=== PATIENT | female | born 1950 | race Caucasian/White ===

== ENCOUNTER → 2019-08-25 | Outpatient (CLI) | payer OTHER | LOC: RAD 10:51 | PROVIDERS: ATTEND Nurse Practitioner | DX: Z12.31 Encounter for screening mammogram for malignant neoplasm of breast (principal) ==

== ENCOUNTER → 2019-11-30 | Outpatient (CLI) | payer OTHER ==
[2019-11-30 10:57] LABS: URINE BILIRUBIN NEGATIVE (Negative); URINE BLOOD NEGATIVE (Negative); URINE CLARITY CLEAR; URINE COLOR YELLOW; URINE GLUCOSE-RANDOM* NEGATIVE (Negative); URINE KETONES NEGATIVE (Negative); URINE LEUKOCYTES-REFLEX NEGATIVE (Negative); URINE NITRITE-REFLEX NEGATIVE (Negative); URINE PROTEIN (DIPSTICK) NEGATIVE (Negative); URINE SPECIFIC GRAVITY <= 1.005 (1.005-1.035); URINE UROBILINOGEN 0.2 E.U./dl (0.2-1.0)
[2019-11-30 10:58] LABS: ABSOLUTE NEUTROPHILS 3.8 thou/uL (1.4-8.2); BASOPHILS 0.7 % (0.0-2.0); EOSINOPHILS 2.8 % (0.0-3.0); HEMATOCRIT 44.7 % (37.0-47.0); MCH 31.4 pg (26.0-34.0); MCHC 33.6 g/dL (28.0-37.0); MCV 93.5 fL (80.0-100.0); MONOCYTES 6.2 % (1.0-8.0); PLATELET COUNT 242 thou/uL (150-400); POLYS 65.3 % (36.0-66.0); RBC 4.78 mil/uL (4.20-5.00); RDW 13.8 % (10.5-14.5); WBC 5.8 thou/uL (4.0-11.0)
[2019-11-30 11:13] LABS: ALBUMIN 4.4 g/dL (3.4-5.0); ANION GAP 8 mmol/L (7-16); BUN 19 mg/dL (7-18); CALCIUM 9.6 mg/dL (8.5-10.1); CHLORIDE 101 mmol/L (98-107); CHOLESTEROL 298 mg/dL (<200); CO2 32 mmol/L (21-32); CREATININE 0.9 mg/dL (0.6-1.0); GLUCOSE 95 mg/dL (74-106); HDL CHOLESTEROL 101 mg/dL (>40); LDL CHOLESTEROL 179 mg/dL (<100); POTASSIUM 4.3 mmol/L (3.5-5.1); SGOT 19 U/L (15-37); SGPT 26 U/L (30-65); SODIUM 141 mmol/L (136-145); TOTAL BILIRUBIN 0.4 mg/dL (0.2-1.0); TOTAL PROTEIN 7.8 g/dL (6.4-8.2); TRIGLYCERIDE 92 mg/dL (<150); VLDL 18 mg/dL (<40)
== END ==
LOC: LAB 10:22
PROVIDERS: ATTEND Nurse Practitioner
DX: Z00.00 Encounter for general adult medical examination without abnormal findings (principal)

== ENCOUNTER → 2020-07-18 | Outpatient (CLI) | payer OTHER ==
[~2020-07-18] MED LIST: MULTI VITAMIN1 EACH PO; SYNTHROID125 MC1 PO; TUMS200 MG PO; ZYRTEC10 M5 PO
[2020-07-18 11:16] LABS: HEMATOCRIT 42.8 % (37.0-47.0); HEMOGLOBIN 14.6 gm/dL (12.0-15.0); MCH 31.8 pg (26.0-34.0); MCV 93.5 fL (80.0-100.0); RBC 4.57 mil/uL (4.20-5.00); RDW 14.3 % (10.5-14.5); WBC 5.9 thou/uL (4.0-11.0)
[2020-07-18 11:23] LABS: URINE BILIRUBIN NEGATIVE (Negative); URINE BLOOD NEGATIVE (Negative); URINE CLARITY CLEAR; URINE COLOR YELLOW; URINE GLUCOSE-RANDOM* NEGATIVE (Negative); URINE KETONES NEGATIVE (Negative); URINE LEUKOCYTES-REFLEX NEGATIVE (Negative); URINE NITRITE-REFLEX NEGATIVE (Negative); URINE PROTEIN (DIPSTICK) NEGATIVE (Negative); URINE SPECIFIC GRAVITY <= 1.005 (1.005-1.035); URINE UROBILINOGEN 0.2 E.U./dl (0.2-1.0)
[2020-07-18 11:25] LABS: CALCIUM 9.4 mg/dL (8.5-10.1); POTASSIUM 4.1 mmol/L (3.5-5.1)
[2020-07-18 11:30] LABS: INR 0.95; PROTIME 10.4 Seconds (10.5-12.1)
--- NOTE | 2020-07-18 13:45 | EKG ---
[address] [place] [employer] [address] ELECTROCARDIOGRAM REPORT Name: TANO GARCIA Room #: REG [facility]#: [id number] Admission: 07/18/20 Attend Phys: Austyn Major MD Discharge: Date of : 54 Report #: [id number] [facility] Test Date: 2020-07-18 Test Time: 11:09:19 Pat Name: TANO GARCIA Department: Room: Gender: F Wax Room Supervisor: LIZZETTE CORTEZ : 1950 Requested By: Austyn Major Order Number: [id number] MD: Gigi Worthington Measurements Intervals [place] Rate: 57 P: 34 [place]: 163 QRS: 4 QRSD: 86 T: 37 QT: 405 QTc: 395 Interpretive Statements Sinus rhythm Abnormal R-wave progression, early transition No previous ECG available for comparison Electronically Signed On 07-18-2020 13:44:57 CDT by Gigi Worthington [email or web address] <ELECTRONICALLY SIGNED> By: Gigi Worthington MD, [facility] 07/18/20 1344 1109 1109 Gigi Worthington MD, FACC /EPI
== END ==
LOC: PAC 10:32
PROVIDERS: ATTEND Orthopaedic Surgery
DX: Z01.818 Encounter for other preprocedural examination (principal); M17.12 Unilateral primary osteoarthritis, left knee

== ENCOUNTER 2020-07-24 12:09 | Observation (INO) | payer OTHER ==
[~2020-07-24] VITALS: Ht 170.2 cm; Wt 89.8 kg
[2020-07-24 13:12] VITALS: BP 155/73
[2020-07-24 18:11] VITALS: BP 151/71
[2020-07-24 20:15] VITALS: BP 161/70
--- NOTE | 2020-07-24 20:28 | NUR ---
Admitted from OR this PM; transferred to room safely; s/p L knee. On room air. Vital signs stable. On regular diet- ate only approx 10%, stating she did not have any appetite; snack offered; no nausea, no vomiting and no abdominal pain noted. On MS, not on telemetry; no complains and signs of chest pain, crushing sensation and heaviness. Assisted in ADLs. With IV a L FA- D5NS at 100cc/hr started as ordered. Complained of pain , due PRN pain meds given as prescribed. HECTOR dressing in place; C/D/I; JAI hose, SCDs and polar pack in place. NVS intact, able to wiggle toes and feel tactile stimulation. A/w PT assessment. Admission education done, forms signed as well. Admission to be continued by night RN (history, assessment and med rec), checklist attached to chart. Pt's present at bedside; update given. Falls bundle in place. To continue monitoring patient.
[2020-07-25 03:48] VITALS: BP 144/75
--- NOTE | 2020-07-25 04:12 | NUR ---
ASSESSMENT COMPLETED. PT IS ALERT AND PLEASANT.LEFT KNEE WITH HECTOR DRSG WELL POLAR CORINA. GOOD CSM TO TOES. NOT MUCH PAIN, USING BED PARKER, GOOD U/O. AFEBRILE.ROOM AIR. CONTINUES ON IVF.
--- NOTE | 2020-07-25 08:42 | NUR ---
ASSESSMENT: CM REVIEWED CHART AND SPOKE WITH PATIENT AT THE BEDSIDE. PT IS ALERT AND ORIENTED X4. PT IS S/P LEFT TOTAL KNEE ARTHROPLASTY. PT REPORTS THAT SHE LIVES IN A HOUSE WITH HER . PT HAS TWO STEPS TO ENTER THE HOME WITH HANDRAIL AND NO STEPS ONCE INSIDE THAT SHE HAS TO USE. PT REPORTS HAVING A CANE, WALKER, GRAB BAR, AND SHOWER CHAIR AT HOME TO ASSIST HER IF NEEDED. PT STATES SHE HAS OUTPATIENT THERAPY ARRANGED TO BEGIN HERE AT [facility] OUTPATIENT THERAPY ON FRIDAY. CM DISCUSSED ROLE. PT DOES NOT ANTICIPATE HAVING ANY NEEDS FROM CASE MANAGEMENT. CM WILL CONTINUE TO FOLLOW TO ASSIST NEEDED. PT WILL WORK WITH THERAPY TODAY.
[2020-07-25 09:01] VITALS: BP 129/73
--- NOTE | 2020-07-25 10:35 | NUR ---
Assumed care of pt at 0700. Pt a&ox4. Pain controlled with prn pain meds. Pt nausous at first with physical therapy. Anti-emetic administered. IVF infusing. Dressing c/d/i. SCDs and JAI hose in place. Polar care in place. Call light within reach. Fall precautions in place. Will continue to monitor.
[2020-07-25 16:56] VITALS: BP 138/68
[2020-07-25 20:00] VITALS: BP 140/56
[2020-07-26 04:33] VITALS: BP 145/63
--- NOTE | 2020-07-26 05:04 | NUR ---
ASSUMED CARE OF PT AT SHIFT CHANGE. PT IS AOX4 AND LETS NEEDS BE KNOWN. FALL PRECAUTION IN PLACE. POLAR CARE IN PLACE. PT REPORTED SOME LE PAIN AND WAS TREATED WITH PRN PAIN MEDS. PT DENIED NAUSEA AND SOA. PT WAS ABLE TO AMBULATE TO BSC WITH MINIMAL ASSISTANCE. ASSESSMENT CHARTED. PT WAS ABLE TO SLEEP PART OF THE SHIFT. VSS AND NO S/S OF ACUTE DISTRESS. WILL CONTINUE TO MONITOR.
[2020-07-26 07:52] VITALS: BP 149/67
--- NOTE | 2020-07-26 10:32 | NUR ---
ASSUMED PT CARE AROUND 0700. PT ALERT X ORIENTED X4. ON ROOM AIR. STAND BY ASSIST. IV LEFT FA/SALINE LOCKED. PAIN CONTROLLED BY PAIN MEDICINE, PATIENT'S AT BEDSIDE. PT WORKED WITH PHYSICAL THERAPY. PICCO DRESSING, POLAR CARE/TEDS/SCDS IN PLACE. REGULAR DIET. USES BEDSIDE COMMODE WITH WALKER. CALL LIGHT IN REACH. WILL CALL APPROPRIATELY. WILL CONTINUE TO MONITOR.
--- NOTE | 2020-07-26 11:33 | NUR ---
on-going assessment: CM REVIEWED CHART. PT CONTINUED TO WORK WITH THERAPY AND WAS CLEARED TO DISCHARGE HOME. PT REPORTS SHE RESCHEDULED HER OUTPATIENT APPT HERE AT [facility] FOR TOMORROW. PT REPORTS NO FURTHER NEEDS FROM CM.
[2020-07-26 11:34] VITALS: BP 149/67
--- NOTE | 2020-07-26 14:47 | O ---
[facility] [place] [address] [place] [address] OPERATIVE REPORT Name: TANO GARCIA Room #: 437-P [facility] Adriana Black#: [id number] Admission: 07/24/20 Attend Phys: Austyn Major MD Discharge: 07/26/20 Date of : 54 Report #: [id number] THIS REPORT FOR: cc: Jemma Mares Beth RNP Abraham, Scott M. MD ~ DOC #: [id number] Austyn Major MD DATE OF SERVICE: 07/24/2020 PREOPERATIVE DIAGNOSIS: Left knee valgus osteoarthritis. POSTOPERATIVE DIAGNOSIS: Left knee valgus osteoarthritis. PROCEDURE: Left total knee arthroplasty using Navio robotic assistance. SURGEON: Austyn Major MD. SLITTER PROCESSED FILM: None. ANESTHESIA: LMA with adductor canal block. IMPLANTS: A Lea and Nephew size 7 Journey II BCS cobalt chrome femur, size 5 tibia, size 32 patella and a 13 constrained polyethylene. Tourniquet time was 53 minutes. ESTIMATED BLOOD LOSS: 25 mL. COMPLICATIONS: None. SPECIMENS: None. CONDITION UPON LEAVING OR: Stable. INDICATIONS FOR PROCEDURE: The patient is a 70-year-old female with severe left knee valgus osteoarthritis. She had failed conservative measures for this and after discussion with her, she elected for left total knee arthroplasty. DESCRIPTION OF PROCEDURE: Risks, benefits, alternatives, complications were discussed in detail with the patient including but not limited to risk of anesthesia, risk of damage to nerves, arteries, blood vessels, risk for infection, bleeding, risk for continued knee pain, need for reoperation. DESCRIPTION OF PROCEDURE: Informed consent was obtained from the patient. Left knee was appropriately marked in the preoperative holding area. IV Ancef was given for preoperative antibiotics. She was brought to the operating room and [address] [address] OPERATIVE REPORT Name: TANO GARCIA Room #: 437-P [facility] Adriana Black#: [id number] Admission: 07/24/20 Attend Phys: Austyn Major MD Discharge: 07/26/20 Date of : 54 Report #: [id number] placed in the supine position on the operating table. LMA anesthesia was induced without complication. Tourniquet was placed on the left thigh. Left lower extremity was prepped and draped in normal sterile fashion. Timeout was performed properly identifying the patient and procedure as well as the instrumentation and implants. All in the operating room in agreement. Left lower extremity was exsanguinated, tourniquet was inflated. Tourniquet time was 53 minutes. Standard midline approach to the knee was made with 10 blade through the skin. Dissection was taken down sharply to the fascia and deep flaps were developed medially and laterally. Fresh 10 blade was used to make a medial parapatellar arthrotomy and the knee was inspected. There was severe lateral compartment osteoarthritis with moderate medial and patellofemoral compartment osteoarthritis. ACL and PCL were removed sharply. Reference pins were placed in the femur and the tibia. The knee was digitally mapped using the Basha robotic system. Intraoperative plan was made. We sized the size 7 femur, a size 5 tibia and a 10 spacer. After acceptance of the intraoperative plan, the distal femoral cut was made with Navio bur. Distal femoral cutting block was pinned in place and chamfer cuts were made. Attention was turned to the tibia. Remainder of the menisci removed with Bovie cautery. Tibial resection guide was pinned in place and tibial resection was made. Flexion and extension gaps were checked and found to have good balance laterally in flexion and extension with slight laxity medially. It was felt we can make up for this with a constrained implant. Tibia sized, found to be a size 5. A size 5 tibial trial was placed, pinned and punched. Size 7 femoral trial was placed and the box cut was made. This was then trialed with a size 10 up to a size 13 polyethylene. Size 13 polyethylene demonstrated the best stability laterally throughout range of motion of the knee. Again, medially there was some laxity and it was felt we could use a constrained implant, 9 mm of bone was resected from the posterior surface of the patella and a size 32 patellar trial button was placed, knee was taken through range of motion, found to be stable, found to have good patellar tracking. Trial components were removed. Bone ends were thoroughly irrigated with normal saline. A final size 5, tibia size 7 Journey II BCS cobalt chrome femur, and a size 32 patella were cemented in place using standard cementation techniques. While the cement cured, a periarticular injection consisting of morphine, ropivacaine, epinephrine, Toradol was placed around the knee joint capsule. After the cement cured, tourniquet was deflated. Hemostasis was obtained with Bovie cautery. Final size 13 constrained polyethylene was placed. A gram of vancomycin was placed deep in the joint. Fascia was closed with 0 Vicryl. Skin was closed with 2-0 Vicryl, 3-0 Monocryl. Dermabond and a HECTOR dressing was applied. The patient tolerated this procedure well and went to recovery room under care of Anesthesia postoperatively. Austyn Major MD [facility] [address] [address] OPERATIVE REPORT Name: TANO GARCIA Room #: 437-P [facility] Adriana Black#: [id number] Admission: 07/24/20 Attend Phys: Austyn Major MD Discharge: 07/26/20 Date of : 54 Report #: [id number] <ELECTRONICALLY SIGNED> By: Austyn Major MD 07/26/20 1447 1550 1703 Austyn Major MD /nt
== END 2020-07-26 12:30 | disposition home or self-care (01) ==
LOC: TBA 12:09 → OR 12:09 → TBA 12:11 → OR 13:09 → TBA 15:46 → 4S 17:18
PROVIDERS: ADMIT Orthopaedic Surgery; ATTEND Orthopaedic Surgery
DX: M17.12 Unilateral primary osteoarthritis, left knee (principal)
CPT/HCPCS: 50010; 50101; 50415; 50954; 51130; 51225; 51320; 52001; 52282; 53000; 53078; 56527; 56528; 57095; 57103; 57110; 57127; 57180; 58239; 62110; 62900; 64043; 65060; 70005

== ENCOUNTER → 2020-11-07 | Outpatient (CLI) | payer OTHER ==
[~2020-11-07] VITALS: Ht 170.2 cm; Wt 90.7 kg
[~2020-11-07] MED LIST changes: +IBUPROFEN 600600 M1 PO
--- NOTE | ~2020-11-07 | HPC ---
[facility] [place] [address] PAIN MANAGEMENT CONSULTATION Name: TANO GARCIA Room #: REG [facility].#: [id number] Admission: 11/07/20 Attend Phys: Marques Tang DO Discharge: Date of : 54 Report #: [id number] THIS REPORT FOR: cc: Jemma Mares Beth RNP Johnson, James E. DO ~ DATE OF SERVICE: 11/07/2020 REFERRING NURSE PRACTITIONER: Jemma Mares NP CHIEF COMPLAINT: Left low back pain, left lower extremity pain with paresthesias. HISTORY OF PRESENT ILLNESS: As you know, the patient is a very pleasant 70-year-old female reporting acute onset of low back pain, left buttock and left lower extremity pain with radiation to the great toe on the left side. The patient states pain began prior to her left total knee arthroplasty and progressed even after that surgery. She denies any specific injury or trauma. The patient states that physical therapy has been helpful, but has not improved symptoms to a great degree. She has undergone total knee arthroplasty on 07/24/2020 and since then, her pain has progressed and worsened. She was trialled on a Medrol Dosepak, which improved the symptoms and has been utilizing ibuprofen 600 mg 4 times a day with good improvement in symptoms. Prior to her total knee arthroplasty, she was provided with a diagnosis of lumbar radiculopathy by her orthopedic surgeon. She did not treat those conditions at that time. Due to lack of improvement with conservative treatment including physical therapy and hiht-yyl-hroudzl medications as well as prescription of ibuprofen, the patient was referred on to our clinic to discuss treatment options. The patient indicates her pain is a constant, continuous, and intermittently exacerbated. She describes the pain more of a throbbing and numbness and tingling radiating from the buttock area to the left great toe. She places current pain score at 3/10, daily average of 4/10, worst pain has been is 8/10. The patient states pain is exacerbated with lying in bed at night. Pain is improved with stretching, ibuprofen, and the seated position. She has been referred to our service to discuss treatment options for left buttock and left leg pain. PAST MEDICAL HISTORY: 1. Thyroid disease. 2. Visual impairment. 3. Osteoarthritis. PAST SURGICAL HISTORY: 1. Left total knee arthroplasty. 2. [place] [address] PAIN MANAGEMENT CONSULTATION Name: TANO GARCIA Room #: REG CLI [facility]#: [id number] Admission: 11/07/20 Attend Phys: Marques Tang DO Discharge: Date of : 54 Report #: [id number] SOCIAL HISTORY: The patient denies IV or illicit drug use. Denies any chronic alcohol use. She is not a smoker. She is retired, retired years ago. She is not receiving workmen's compensation nor is she trying to obtain disability benefits. She is not in litigation in regards to pain. She is unaccompanied at today's visit. REVIEW OF SYSTEMS: Positive for wearing corrective eyewear, chronic sinus problems with rhinitis, low back pain, left lower extremity pain with paresthesias, numbness and tingling, thyroid disease, heat and cold intolerance. All other review of systems is negative per 12-point review of systems other than those listed in history of present illness. Pain impact score 34/70, moderate interference of daily activities secondary to pain. ALLERGIES: CODEINE. CURRENT MEDICATIONS: Levothyroxine 125 mcg per day, multivitamin 1 tab per day, cetirizine 10 mg per day, calcium carbonate 200 mg once a day, ibuprofen 600 mg 3 times a day. IMAGING: No imaging available. PHYSICAL EXAMINATION: VITAL SIGNS: Blood pressure 137/63, pulse 70, respiratory rate 16 and unlabored. The patient is 98% on room air. Height 5 feet 7 inches tall, weight 200 pounds, BMI calculated 31.3. GENERAL: Well-developed, well-nourished, well-hydrated 70-year-old female appearing stated age, pain is rated today up to 3/10. HEENT: Normocephalic, atraumatic. Pupils equal, round and responsive to light. Extraocular muscles are intact. Speech is fluent. The patient deemed an excellent historian. She is wearing a mask in compliance with COVID-19 regulations. LUNGS: Clear. No wheeze, rhonchi or rales. CARDIOVASCULAR: Regular. No appreciable gallop, no rub. ABDOMEN: Soft. EXTREMITIES: Show no clubbing, no cyanosis and no edema. MUSCULOSKELETAL: Lower extremity strength equal and symmetrical 5/5 intact to light touch from L1 through S2 dermatomes. Seated straight leg raising negative. Supine straight leg raising positive on the left. Leisa's test is negative. Modified Gaenslen's positive for axial low back pain. Ankle clonus negative. Babinski is negative. Thigh thrust maneuver is equivocal, more positive on right than left. Gigi's test is positive right, negative left. Sacral compression causes intensification of pain in the upper buttock area, unrelated to the left buttock and posterolateral thigh pain. [facility] [address] [place] [address] PAIN MANAGEMENT CONSULTATION Name: TANO GARCIA Room #: REG [facility]#: [id number] Admission: 11/07/20 Attend Phys: Marques Tnag DO Discharge: Date of : 54 Report #: [id number] ASSESSMENT: 1. Symptomatic lumbar radiculopathy. 2. Lumbosacral spondylosis with radiculopathy. 3. Bilateral sacroiliac joint pain. 4. Osteoarthritis. 5. Chronic intractable pain. PLAN: 1. Based on today's physical exam, the history the patient has provided, the description the patient uses in regards to pain as well as the descriptors that patient utilizes, likely source of the patient's pain is a lumbar radiculopathy. The patient indicates she is able to sit without difficulty and ambulate without difficulty, which rules out SI joint as a source of her symptoms. She is having no changes in weightbearing, which rules out possible hip pathology. The distribution of symptoms is classic for a dermatomal distribution with radiation to the left great toe. We discussed with the patient, the distribution of symptoms would correlate to an L5 dermatomal distribution, indicating that there is either changes at the L4-L5 level typically in the central canal or lateral recess causing impingement upon the L5 nerve root or disk bulge/herniation at the L5-S1 level with impingement on the L5 nerve root or neural foraminal stenosis affecting the L5 nerve root. After discussion of the physical findings and how they correlate to an L5 dermatomal distribution, we then discussed treatment options to address ongoing pain. The following was discussed with the patient today. We discussed physical therapy, stretching exercises and core strengthening as a treatment approach. We discussed medication management utilizing neuropathic medications in conjunction with her current nonsteroidal anti-inflammatory. These would include amitriptyline, nortriptyline, Cymbalta, Lyrica or gabapentin. We discussed lumbar epidural injection under fluoroscopic guidance to directly affect the L5 nerve root. We also discussed surgical procedure such as a spinal cord stimulator or surgical decompression. After reviewing risks and benefits of all proposed treatment options, the patient chose to move forward with a lumbar epidural injection under fluoroscopic guidance. 2. The patient was advised due to third constitution party payer restrictions, authorization would have to be obtained before the patient could undergo a lumbar epidural injection. We will begin that process immediately. I am hopeful we can have this patient's approval quickly and have the patient undergo the lumbar epidural injection requested to address her lumbar radicular symptoms involving the left L5 nerve root. 3. No medication changes made at today's visit. We recommend the patient continue the ibuprofen 600 mg 4 times a day as needed as long as she is receiving benefit, no dyspepsia, worsening of blood pressure, or lower extremity edema. She will continue this medication until our next visit. 4. We will have the patient return once we [place] [address] PAIN MANAGEMENT CONSULTATION Name: TANO GARCIA Room #: REG [facility] [id number] Admission: 11/07/20 Attend Phys: Marques Tang DO Discharge: Date of : 54 Report #: [id number] requested by the third constitution party payer to undergo the lumbar epidural injection that we proposed. I am hopeful that we can have that authorization quickly, the patient can return to undergo the procedure. We will keep you apprised of the timing of which she can undergo the injection and any response she may benefit. 5. We wish to thank nurse practitioner, Jemma Mares for the opportunity to see this patient in consultation. We will keep you apprised of her response to treatment as we address lumbar radiculopathy. Again, we wish to thank you for the opportunity to see the patient in consultation. By: [id number] Marques Tang DO /nt
[2020-11-07 12:40] VITALS: BP 137/63
--- NOTE | 2020-11-07 12:53 | NUR ---
Pain Clinic Assessment: 1. History of Osteoarthritis: RIGHT HIP RIGHT KNEE History of Rheumatoid Arthritis: 2. Height: 5 ft. 7 in. 170.2 cm. Weight: 200.0 lb. oz. 90.720 kg. Patient's BMI: 31.3 3. Vital Signs: BP: 137/63 Pulse: 70 Resp: 16 Temp: 02 Sat: 98 ECG Mon: 4. Pain Intensity: 3 5. Fall Risk: Dizziness: N Needs help standing or walking: N Fallen in the last 3 months: N Fall risk comments: 6. Patient on Blood Thinner: None 7. History of Hypertension: N 8. Opioid Therapy greater than 6 weeks: Opiate Contract Signed: 9. Risk Assessment Tool Provided: 0 LOW RISK 10. Functional Assessment Tool: 11. Recreational Drug Use: Never Drug Type: Tobacco Use: Never Smoker Tobacco Type: Amount or Packs/day: How Many Years: Alcohol Use: Yes Frequency: Weekly Quant: 1
== END ==
LOC: PAIN 10:32
PROVIDERS: ATTEND Anesthesiology Pain Medicine
DX: G89.4 Chronic pain syndrome (principal); M47.27 Other spondylosis with radiculopathy, lumbosacral region; M19.90 Unspecified osteoarthritis, unspecified site

== ENCOUNTER → 2020-11-14 | Outpatient (CLI) | payer OTHER ==
[~2020-11-14] VITALS: Ht 170.2 cm; Wt 91.8 kg
[2020-11-14 10:02] VITALS: BP 135/85
--- NOTE | 2020-11-14 10:14 | NUR ---
Pain Clinic Assessment: 1. History of Osteoarthritis: RIGHT HIP RIGHT KNEE History of Rheumatoid Arthritis: 2. Height: 5 ft. 7 in. 170.2 cm. Weight: 202.4 lb. oz. 91.808 kg. Patient's BMI: 31.7 3. Vital Signs: BP: 135/85 Pulse: 67 Resp: 18 Temp: 02 Sat: 98 ECG Mon: 4. Pain Intensity: 3 5. Fall Risk: Dizziness: N Needs help standing or walking: N Fallen in the last 3 months: N Fall risk comments: 6. Patient on Blood Thinner: None 7. History of Hypertension: N 8. Opioid Therapy greater than 6 weeks: Opiate Contract Signed: 9. Risk Assessment Tool Provided: 0 LOW RISK 10. Functional Assessment Tool: / 11. Recreational Drug Use: Never Drug Type: Tobacco Use: Never Smoker Tobacco Type: Amount or Packs/day: How Many Years: Alcohol Use: Yes Frequency: Weekly Quant: 1
--- NOTE | 2020-11-15 07:55 | HPC ---
[address] [place] [address] PAIN MANAGEMENT CONSULTATION Name: TANO GARCIA Room #: REG [facility].#: [id number] Admission: 11/14/20 Attend Phys: Marques Tang DO Discharge: Date of : 54 Report #: [id number] THIS REPORT FOR: cc: Jemma Mares Beth RNP Johnson, James E. DO ~ cc: MILENA Heller DATE OF SERVICE: 11/14/2020 CHIEF COMPLAINT: Low back pain, left lower extremity pain with paresthesias. HISTORY OF PRESENT ILLNESS: As you know, the patient is a very pleasant 70-year-old female reporting acute onset of low back pain, left buttock and posterolateral thigh pain radiating all the way down to the great toe on the left side. She states the pain began prior to her left total knee arthroplasty and progressed even after surgery. The patient denied any specific injury or trauma. She has trialled [id number] medications without benefit. She was sent to our clinic to discuss treatment options after the failure of conservative treatment. She was seen in consultation on 11/07/2020, diagnosed with lumbar radiculopathy and provided the different treatment options available. The patient chose to undergo lumbar epidural injection under fluoroscopic guidance. She returns today in followup visit requesting a lumbar epidural injection under fluoroscopic guidance. She is placing her current pain score 3/10. ALLERGIES: CODEINE. CURRENT MEDICATIONS: Levothyroxine 125 mcg per day, multivitamin 1 tab per day, cetirizine 10 mg once a day, calcium carbonate 200 mg once a day, ibuprofen 600 mg 3 times a day. SOCIAL HISTORY: The patient denies tobacco use. Denies IV or illicit drug use. Denies any chronic alcohol use. She is retired, retired years ago. She is not receiving workmen's compensation. She is unaccompanied at today's visit. IMAGING: No new imaging available. PHYSICAL EXAMINATION: VITAL SIGNS: Blood pressure 135/85, pulse 67, respiratory rate 18 and unlabored. The patient is 98% on room air. Height 5 feet 7 inches tall, weight 202.4 pounds, BMI calculated 31.7. GENERAL: Well-developed, well-nourished, well-hydrated 70-year-old female, appears stated age, placing current pain score 3/10. HEENT: Normocephalic, atraumatic. Pupils are round. She is wearing a mask in compliance with COVID-19 regulations. EXTREMITIES: No clubbing, no cyanosis. No appreciable edema. [address] [address] PAIN MANAGEMENT CONSULTATION Name: TANO GARCIA Room #: REG [facility]..#: [id number] Admission: 11/14/20 Attend Phys: Marques Tang DO Discharge: Date of : 54 Report #: [id number] MUSCULOSKELETAL: Lower extremity strength remains symmetrical 5/5. Muscle bulk and tone equal and symmetrical in comparing lower extremities. Seated straight leg raising negative. Supine straight leg raising is positive on the left approximately 60-degree angle. Ankle clonus is negative. Babinski is negative. Thigh thrust maneuver is equivocal. Gigi's test is positive on the right, negative left. Sacral compression is positive on the right, negative on the left. ASSESSMENT: 1. Symptomatic lumbar radiculopathy. 2. Lumbosacral spondylosis with radiculopathy. 3. Bilateral sacroiliac joint pain. 4. Osteoarthritis. 5. Chronic intractable pain. PLAN: 1. The patient returns today in followup visit requesting to undergo lumbar epidural injection under fluoroscopic guidance. The patient has been advised of the risks and the benefits of this procedure. These risks include but are not necessarily limited to bleeding, bruising, infection, worsening pain, no relief of pain, no temporary or permanent muscle weakness, temporary or permanent nerve damage, possible paralysis, post-dural puncture headache and . The patient states she understood and wished to proceed. 2. No medication changes made at today's visit. The patient will continue current medical therapy as prior prescribed. 3. We plan to see the patient back in followup visit in 30 days. At that time, review the efficacy of today's lumbar epidural injection to determine if next in the series of epidural injections will be recommended. PROCEDURE NOTE: DESCRIPTION OF PROCEDURE: L5-S1 left paramedian epidural steroid injection under fluoroscopic guidance. This is the first procedure of the first series that the patient is undergoing. After obtaining written consent, the patient was taken back to the fluoroscopy suite, placed in a prone position with pillow under the abdomen to decrease lumbar lordosis. The skin overlying the lumbosacral area was then prepped and draped in aseptic fashion. The L5-S1 vertebral interspace was then identified by AP fluoroscopy. The skin and subcutaneous tissue overlying the target site of injection was anesthetized with 3 mL 1% lidocaine. A 20-gauge 3-1/2 inch Tuohy needle was then advanced under fluoroscopic guidance towards the epidural space using a left paramedian approach. The epidural space was identified using loss of resistance to air technique. After negative [address] [address] PAIN MANAGEMENT CONSULTATION Name: TANO GARCIA Room #: REG [facility]#: [id number] Admission: 11/14/20 Attend Phys: Marques Tang DO Discharge: Date of : 54 Report #: [id number] aspiration for heme or cerebrospinal fluid, a total of 1 mL of Omnipaque was injected. A lumbar epidurogram was confirmed using both AP and lateral fluoroscopy. After negative aspiration for heme or cerebrospinal fluid, 5 mL of a solution containing 2 mL 40 mg per mL, 80 mg total triamcinolone along with 3 mL of lidocaine 1% was injected in increments. Contrast spread was noted posterior epidural space. The needle was then retracted approximately half way and needle tract flushed with 1 mL of 1% lidocaine. Needle was then removed. There were no apparent sensory or motor deficits in the lower extremity following the procedure. A sterile bandage was placed over the injection site. The heart rate, pulse, oximetry and blood pressure were continuously monitored after the procedure. There were no apparent complications. The patient tolerated the procedure well and was carefully escorted to the recovery room in stable condition. There were no apparent complications. After meeting discharge criteria, the patient was then discharged home. <ELECTRONICALLY SIGNED> By: Marques Tang DO 11/15/20 [id number] Marques Tang DO /nt
== END | disposition home or self-care (01) ==
LOC: PAIN 06:59
PROVIDERS: ATTEND Anesthesiology Pain Medicine
DX: M47.27 Other spondylosis with radiculopathy, lumbosacral region (principal); M53.3 Sacrococcygeal disorders, not elsewhere classified; M19.90 Unspecified osteoarthritis, unspecified site; G89.29 Other chronic pain; Z98.890 Other specified postprocedural states; Z79.899 Other long term (current) drug therapy; Z88.6 Allergy status to analgesic agent

== ENCOUNTER → 2020-12-19 | Outpatient (CLI) | payer OTHER | LOC: BC 10:07 | PROVIDERS: ATTEND Nurse Practitioner | DX: Z12.31 Encounter for screening mammogram for malignant neoplasm of breast (principal) ==